=== PATIENT | male | born 1945 ===

== ENCOUNTER 2018-12-07 02:22 | Outpatient (CLI) | payer MEDICARE | END 2018-12-07 23:59 | disposition home or self-care (01) | LOC: DIABETIC 02:22 | DX: E11.9 Type 2 diabetes mellitus without complications (principal); Z79.84 Long term (current) use of oral hypoglycemic drugs | CPT/HCPCS: G0108 ==

== ENCOUNTER 2019-01-04 04:42 | Outpatient (CLI) | payer MEDICARE | END 2019-01-04 23:59 | disposition home or self-care (01) | LOC: DIABETIC 04:42 | DX: E11.9 Type 2 diabetes mellitus without complications (principal); Z79.84 Long term (current) use of oral hypoglycemic drugs | CPT/HCPCS: G0108 ==

== ENCOUNTER 2019-04-05 04:56 | Outpatient (CLI) | payer MEDICARE | END 2019-04-05 23:59 | disposition home or self-care (01) | LOC: DIABETIC 04:56 | DX: E11.9 Type 2 diabetes mellitus without complications (principal); Z79.84 Long term (current) use of oral hypoglycemic drugs; Z79.899 Other long term (current) drug therapy | CPT/HCPCS: G0108 ==

== ENCOUNTER 2019-07-05 00:11 | Outpatient (CLI) | payer MEDICARE | END 2019-07-05 23:59 | disposition home or self-care (01) | LOC: DIABETIC 00:11 | DX: E11.9 Type 2 diabetes mellitus without complications (principal); Z79.84 Long term (current) use of oral hypoglycemic drugs; Z79.899 Other long term (current) drug therapy | CPT/HCPCS: G0108 ==